=== PATIENT | male | born 1970 | race Native Hawaiian/Other Pacific Islander ===

== ENCOUNTER 2016-08-06 20:13 | Emergency (ER) | payer BC ==
[~2016-08-06] VITALS: Ht 182.9 cm; Wt 142.9 kg
[~2016-08-06 20:13] MED LIST: ALLO300T23 PO; LOSA50TA8 PO
[2016-08-06 22:05] VITALS: BP 137/81; TEMP 98.1
== END 2016-08-06 22:15 | disposition home or self-care (01) ==
LOC: ED 20:13
DX: S82.001A Unspecified fracture of right patella, initial encounter for closed fracture (principal); X50.1XXA Overexertion from prolonged static or awkward postures, initial encounter; Y92.098 Other place in other non-institutional residence as the place of occurrence of the external cause
CPT/HCPCS: 99283; J1885; L1830

== ENCOUNTER 2016-08-22 13:50 | Outpatient (CLI) | payer BC | END 2016-08-22 19:37 | disposition home or self-care (01) | LOC: MRI 13:50 | DX: M25.561 Pain in right knee (principal); M66.261 Spontaneous rupture of extensor tendons, right lower leg ==

== ENCOUNTER 2020-06-09 16:56 | Outpatient (CLI) | payer BC | END 2020-06-09 19:26 | disposition home or self-care (01) | LOC: RAD 16:56 | PROVIDERS: ATTEND Registered Nurse | DX: M54.5 Low back pain (principal) ==

== ENCOUNTER 2022-08-14 17:21 | Emergency (ER) | payer BC ==
[~2022-08-14] VITALS: Ht 180.3 cm; Wt 149.7 kg
[2022-08-14 17:29] VITALS: TEMP 99.1
[2022-08-14 19:35] VITALS: BP 150/92
== END 2022-08-14 19:35 | disposition home or self-care (01) ==
LOC: ED 17:21
DX: M25.552 Pain in left hip (principal); S70.12XA Contusion of left thigh, initial encounter; W01.0XXA Fall on same level from slipping, tripping and stumbling without subsequent striking against object, initial encounter
CPT/HCPCS: 96372; 99283; J1885; J2930